=== PATIENT | female | born 2000 | race Caucasian/White ===

== ENCOUNTER 2021-09-16 01:44 | Emergency (ER) | payer BC, SELFPAY ==
--- NOTE | ~2021-09-16 | CT_ITS ---
EXAMINATION: CT ABDOMEN AND PELVIS WITH CONTRAST CLINICAL INFORMATION: Right lower quadrant pain COMPARISON: None TECHNIQUE: Multidetector volumetric images were obtained from the superior aspect of the liver through the pubic symphysis following administration 85 mL of Omnipaque 350 intravenous contrast. Sagittal and coronal reformatted images were obtained on the technologist's workstation. Oral contrast: No This CT examination was performed using dose optimization techniques as appropriate, variously including the following: *Automated exposure control *Adjustment of mA and/or kV according to patient size (this includes techniques or standardized protocols for targeted exams where dose is matched to indication/reason for exam; i.e. extremities or head) *Use of iterative reconstruction technique DLP: 473 mGy-cm FINDINGS: LUNG BASES: The visualized lung bases are unremarkable. LIVER, GALLBLADDER, AND BILIARY TREE: The liver is normal in size, shape, and attenuation. No focal hepatic lesion or biliary ductal dilatation is present. The gallbladder is unremarkable with no evidence of radiopaque gallstones, gallbladder wall thickening, or obvious pericholecystic inflammatory changes. PANCREAS: Unremarkable. SPLEEN: Unremarkable. ADRENAL GLANDS: Unremarkable. KIDNEYS AND URETERS: The kidneys are normal in size, shape, and attenuation. No hydronephrosis, hydroureter, or calculi seen. No perinephric stranding. BLADDER: Decompressed with no gross abnormality. GASTROINTESTINAL TRACT: The stomach is unremarkable. Normal caliber of the small bowel. There is no obstruction. There is a normal appendix. No colonic wall thickening or inflammatory change. No free air. Trace pelvic free fluid. ABDOMINAL WALL: No significant hernia is appreciated. LYMPH NODES: Normal. VASCULAR: Unremarkable. PELVIC VISCERA: Retroverted uterus. No adnexal mass. OSSEOUS STRUCTURES: Unremarkable. CT/CT abdomen pelvis w con IMPRESSION: No acute finding in the abdomen or pelvis. Normal appendix. Trace pelvic free fluid is likely physiologic. Fleischner guidelines were followed.
[2021-09-16 02:05] VITALS: BP 120/70; PULSE 105; O2SAT 97
[2021-09-16 02:18] VITALS: PULSE 104; RESP 18; TEMP 37.1; O2SAT 96; BMI 24.1
[2021-09-16 04:08] LABS: Hematocrit 45.6 % (37.0-47.0); Hemoglobin 15.1 g/dl (12.0-16.0); Mean Corpuscular HGB Conc 33.1 g/dl (31.0-35.0); Mean Corpuscular Hemoglobin 28.2 pg (27.0-33.0); Mean Corpuscular Volume 85.1 fL (80.0-98.0); Mean Platelet Volume 9.6 fL (9.4-12.3); Platelet Count 238 X10*3/uL (160-400); Red Blood Count 5.36 X10*6/uL (4.20-5.50); Red Cell Distribution Width 13.2 % (11.0-16.0); White Blood Count 9.6 X10*3/uL (4.8-10.8)
[2021-09-16 04:34] LABS: Alanine Aminotransferase 25 U/L (0-31); Albumin Level 4.7 g/dL (3.5-5.0); Alkaline Phosphatase 64 U/L (39-117); Anion Gap 16 (12-20); Aspartate Amino Transferase 20 U/L (5-31); Blood Urea Nitrogen 17 mg/dL (9-16); Calcium 9.7 mg/dL (8.4-10.2); Carbon Dioxide 22 mmol/L (22-29); Chloride 105 mmol/L (96-108); Creatinine Clr Calc Pharmacy 96.5; Estimated Glomerular Filt Rate > 60; Glucose Random 147 mg/dL (60-115); Potassium 4.4 mmol/L (3.3-5.1); Sodium 139 mmol/L (135-145); Total Protein 7.5 g/dL (6.5-8.0)
--- NOTE | 2021-09-16 06:03 | ED_ITS ---
HPI - General Adult General Chief complaint: General Medical Stated complaint: vomiting Time Seen by Provider: 09/16/21 05:44 Source: patient Mode of arrival: EMS History of Present Illness HPI narrative: 21-year-old female without significant past medical history presents via EMS after she developed acute nausea, vomiting, diarrhea that started last night approximately 20:00 after she ate at a pasta place. However, she states she was sharing her food with another friend and states that friend does not have similar symptoms. Otherwise her LMP was 2 weeks ago she denies any urinary pain/burning/frequency. Related Data Allergies Allergy/AdvReac Type Severity Reaction Status Date / Time No Known Allergies Allergy Verified 09/16/21 05:48 Review of Systems Review of Systems: Pertinent positives and negatives as stated in HPI 10 point review of systems is otherwise negative. PMFSH Past Medical History Source: nursing notes reviewed Physical Exam ED Vital Signs: Vital Signs - 24 hr 09/16/21 02:18 Temperature 98.7 F Pulse Rate 104 H Respiratory Rate 18 Pulse Oximetry 96 BMI result Body Mass Index 24.1 VITAL SIGNS: Reviewed. GENERAL: Well developed, well nourished, in no acute distress. HEAD: Normocephalic/atraumatic EYES: PERRLA, EOMI EARS: Ext canals without abnormality OROPHARYNX: no oral lesions noted, posterior pharynx clear LUNGS: Normal breath sounds. No adventitious sounds or accessory muscle use. SpO2<96> CARDIOVASCULAR: Regular rate and rhythm without noted murmurs ABDOMEN: Soft, right lower quadrant/suprapubic pain, non-distended with bowel sounds. MUSCULOSKELETAL: No tenderness, deformities, or effusions noted on gross inspection. EXTREMITIES: No cyanosis, clubbing or edema. SKIN: Inspection of the skin reveals no rashes NEUROLOGIC: Alert and oriented x 4. Strength and sensation to light touch were grossly intact x 4. Course Course Course Narrative: 21-year-old female with history and clinical presentation suggestive of possible appendicitis, renal colic and lower clinical suspicion for ectopic, UTI or gastr oenteritis. Signed out to Dr. Sharpe: f/u CT scan, no ectopic. Medical Decision Making Lab Data Result diagrams: 09/16/21 04:03 09/16/21 04:03 Labs: Lab Results 09/16/21 09/16/21 Range/Units 04:03 04:03 WBC 9.6 (4.8-10.8) X10*3/uL RBC 5.36 (4.20-5.50) X10*6/uL Hgb 15.1 (12.0-16.0) g/dl Hct 45.6 (37.0-47.0) % MCV 85.1 (80.0-98.0) fL MCH 28.2 (27.0-33.0) pg MCHC 33.1 (31.0-35.0) g/dl RDW 13.2 (11.0-16.0) % Plt Count 238 (160-400) X10*3/uL MPV 9.6 (9.4-12.3) fL Absolute Nucleated RBC 0.000 (0.0-0.012) X10*3/uL Nucleated RBC % (auto) 0.0 (0.0-0.2) /100WBC Sodium 139 (135-145) mmol/L Potassium 4.4 (3.3-5.1) mmol/L Chloride 105 (96-108) mmol/L Carbon Dioxide 22 (22-29) mmol/L Anion Gap 16 (12-20) BUN 17 H (9-16) mg/dL Creatinine 0.83 (0.5-1.4) mg/dL Estim Creat Clear Calc 96.5 Estimated GFR > 60 Random Glucose 147 H (60-115) mg/dL Calcium 9.7 (8.4-10.2) mg/dL Total Bilirubin 1.0 (0.0-1.0) mg/dL AST 20 (5-31) U/L ALT 25 (0-31) U/L Alkaline Phosphatase 64 (39-117) U/L Total Protein 7.5 (6.5-8.0) g/dL Albumin 4.7 (3.5-5.0) g/dL Beta HCG, Quant < 2 mIU/mL Discharge Plan Discharge Clinical Impression: Abdominal pain, Nausea & vomiting Patient Disposition: Still a Patient
[2021-09-16] MEDS: ondansetron HCL 4 MG/2 ML VIAL IVPUSH (06:07)
[2021-09-16] MEDS: 0.9 % Sodium Chloride 1,000 ML 999 ML IV (06:10)
[2021-09-16 06:11] LABS: HCG Quantitative < 2 mIU/mL
[2021-09-16] MEDS: iohexoL 350 MG/ML 100 ML INFUS..BTL 85 ML IV (06:32)
[2021-09-16 06:48] VITALS: BP 100/55; PULSE 81; RESP 14; O2SAT 99
--- NOTE | 2021-09-16 08:00 | PC.NURSE ---
pt discharged at 0740, nad, skin wpd, reviewed all results and recommendations/treatment etc, skin wpd, steady gait
== END 2021-09-16 08:02 | disposition still patient (30) ==
PROVIDERS: Student in an Organized Health Care Education/Training Program; Emergency Provider Emergency Medicine Emergency Medical Services
DX: R10.31 Right lower quadrant pain (principal); R11.2 Nausea with vomiting, unspecified
CPT/HCPCS: 36415; 74177; 80053; 84702; 85027; 96361; 96374; 99283; 99284; J2405; Q9967